=== PATIENT | male | born 1950 | race Caucasian/White ===

== ENCOUNTER 2016-08-16 20:00 | Inpatient (IN) | payer MEDICARE, BC ==
[~2016-08-16] VITALS: Ht 190.5 cm; Wt 119.6 kg
[2016-08-16 20:13] VITALS: BP 139/85; PULSE 103; TEMP 100.2
[2016-08-16] MEDS ORDERED: ZOCOR 20MG20 MG PO (20:17)
[2016-08-16] MEDS ORDERED: TOPROL XL100 MG PO (20:18)
[2016-08-16 21:17] VITALS: BP 139/85; PULSE 103; TEMP 100.2
[2016-08-16 23:14] VITALS: BP 104/58; PULSE 83; TEMP 100.1
[2016-08-16 23:29] VITALS: BP 104/58; PULSE 83; TEMP 99
[2016-08-16 23:44] VITALS: BP 101/59; PULSE 87
[2016-08-16 23:59] VITALS: BP 102/62; PULSE 87; TEMP 99
[2016-08-17] VITALS (9 sets, daily range): BP systolic 105–124; BP diastolic 56–66; PULSE 55–85; TEMP 98.2–99.9
[2016-08-18 05:45] VITALS: BP 125/77; PULSE 83; TEMP 98.4
[2016-08-18 07:29] LABS: BASO % 0.2 % (0.0-2.0); EOS # 0.1 (0.0-0.7); EOS % 0.4 % (0-4.0); GRAN # 14.3 (1.4-6.5); GRAN % 84.3 % (42.2-75.2); LYMPH # 1.7 (1.2-3.4); LYMPH % 10.2 % (20.0-51.0); MEAN CELL VOLUME 89 fl (80.0-100.0); MEAN CORPUSCULAR HEMOGLOBIN 30 pg (27.0-31.0); MEAN CORPUSCULAR HGB CONC 33 g/dl (33.0-37.0); MEAN PLATELET VOLUME 11.7 fl (7.4-10.4); MONO # 0.7 (0.1-0.6); MONO % 4.3 % (1.7-9.3); PLATELET COUNT 200 K/mm3 (130-400); RED BLOOD COUNT 4.37 M/mm3 (4.20-5.60); REDCELL DISTRIBUTION WIDTH-CV 13.9 % (11.5-14.5)
[2016-08-18 09:13] VITALS: BP 124/71; PULSE 76; TEMP 98.1
[2016-08-18 14:08] VITALS: BP 127/63; PULSE 77; TEMP 99.4
[2016-08-18] MEDS ORDERED: FLAGYL500 MG PO (17:01)
[2016-08-18] MEDS ORDERED: LEVAQUIN 5500 MG/TA1 PO (17:02)
[2016-08-18 17:30] VITALS: BP 131/80; PULSE 72; TEMP 98.6
== END 2016-08-18 17:40 | disposition home or self-care (01) | DRG 340 ==
LOC: SURG 20:00
PROVIDERS: Surgery
PROC: 0DTJ4ZZ Resection of Appendix, Percutaneous Endoscopic Approach (ICD-10-PCS; principal; 2016-08-16 22:00)
DX: K35.2 Acute appendicitis with generalized peritonitis (principal); I10 Essential (primary) hypertension; E78.00 Pure hypercholesterolemia, unspecified; F17.210 Nicotine dependence, cigarettes, uncomplicated; E66.9 Obesity, unspecified; F10.10 Alcohol abuse, uncomplicated; Z68.32 Body mass index [BMI] 32.0-32.9, adult
CPT/HCPCS: J0330; J1100; J1885; J2405; J2543; J2704; J2765; J3010; J7030; J7050